=== PATIENT | female | born 1955 | race Caucasian/White ===

== ENCOUNTER 2021-01-01 05:34 | Observation (INO) ==
[2021-01-01] MEDS ORDERED: Buffered Lidocaine 1% SYRIN 1 ml INTRADERM ONE (06:00)
[2021-01-01] MEDS ORDERED: Lactated Ringers 1000 ml BAG 1,000 ML IV SCH (06:00)
[2021-01-01] MEDS ORDERED: Dexamethasone IV 4 MG/ML VIAL 1 ml VIAL IV SLOW PU ONE (06:00)
[2021-01-01] MEDS ORDERED: Famotidine IV 10 MG/ML 2 ml VIAL (20 mg) IV ONE (06:00)
[2021-01-01] MEDS ORDERED: Dexamethasone IV 4 MG/ML VIAL 1 ml VIAL ONE ×2 (06:15→07:05)
[2021-01-01] MEDS ORDERED: Tranexamic Acid 1 GM/100ML BAG 2,000 MG/200 ML BAG IV ONE (06:15)
[2021-01-01] MEDS ORDERED: ceFAZolin 2 GM in NS PREMIX 2 GM/100 ML BAG IVPB ONE (06:16)
[2021-01-01] MEDS ORDERED: Famotidine IV 10 MG/ML 2 ml VIAL (20 mg) ONE (06:16)
[2021-01-01] MEDS ORDERED: fentaNYL 100 mcg/2 ml 50 MCG/ML VIAL ONE ×3 (07:05→12:16)
[2021-01-01] MEDS ORDERED: Lidocaine 2% PF 5 ML VIAL ONE (07:05)
[2021-01-01] MEDS ORDERED: Midazolam 2 mg/2 ml VIAL 1 mg/ml 2 ml VIAL (2 mg) ONE (07:05)
[2021-01-01] MEDS ORDERED: Ondansetron 4 mg VIAL 2 MG/ML 2 ml VIAL ONE ×2 (07:05→11:51)
[2021-01-01] MEDS ORDERED: Propofol 10 MG/ML 20 ML BTL ONE (07:05)
[2021-01-01] MEDS ORDERED: Bupivacaine 0.25% SDV PF 10 ML VIAL INJ ONE (07:29)
[2021-01-01] MEDS ORDERED: ceFAZolin VIAL VIAL ONE (07:29)
[2021-01-01] MEDS ORDERED: Propofol 0 MG/0 ML BTL ONE (07:32)
[2021-01-01 07:39] LABS: ABS Lymphocytes 1.5 10^3/ul (1.0-4.8); ABS Monocytes 0.5 10^3/ul (0-0.8); ABS Neutrophils 6.9 10^3/ul (1.5-7.7); Eosinophil % 0.4 %; Hematocrit 41 % (35-47); Hemoglobin 13.8 g/dL (12.0-16.0); Mean Corpuscular HGB Conc 34 g/dL (31-36); Mean Corpuscular Hemoglobin 30 pg (27-31); Mean Corpuscular Volume 90 fL (80-97); Mean Platelet Volume 8.2 fL (7.4-10.4); Platelet Count 239 10^3/uL (150-450); Red Blood Count 4.55 10^6 /uL (3.70-4.87); Red Cell Distribution Width 14 % (10-15)
[2021-01-01 07:55] LABS: INR 1.09 (0.86-1.15)
[2021-01-01 07:58] LABS: Albumin 4.2 g/dL (3.2-5.2); Albumin/Globulin Ratio 1.6 (1-3); Calcium 9.6 mg/dL (8.6-10.3); Globulin 2.7 g/dL (2-4); Total Bilirubin 0.7 mg/dL (0.2-1.0); Total Protein 6.9 g/dL (6.4-8.9)
[2021-01-01] MEDS ORDERED: ROPIVACAINE 5 MG/ML 30 ML BTL (0.5%) ONE (08:22)
[2021-01-01] MEDS ORDERED: Naloxone 0.4 mg VIAL 0.4 mg/ml 1 ml VIAL IV PRN (08:39)
[2021-01-01] MEDS ORDERED: Morphine 4 MG/ML VIAL (1 ml) IV PRN (08:39)
[2021-01-01] MEDS ORDERED: Prochlorperazine 5 mg/ml 2 ml VIAL (10 mg) IV PRN (08:39)
[2021-01-01] MEDS ORDERED: BUPIVACAINE **LIPOSOME/PF 13.3 MG/ML (266MG/ 20ML) VIAL (RESTRICTED) INFIL ONE (09:00)
[2021-01-01] MEDS ORDERED: HYDROmorphone 1 MG/1 ML SYRINGE ONE (09:00)
[2021-01-01] MEDS ORDERED: Acetaminophen IV 1 GM/100ML 100 ML IV ONE (09:00)
[2021-01-01] MEDS ORDERED: Lactulose 30 ml UDC PO PRN (11:20)
[2021-01-01] MEDS ORDERED: Magnesium Hydroxide LIQ 30 ML UDC PO PRN (11:20)
[2021-01-01] MEDS ORDERED: diPHENhydraMINE 25 mg TAB PO PRN (11:20)
[2021-01-01] MEDS ORDERED: diPHENhydraMINE IV 50 MG/ML 1 ml VIAL (BENADRYL) IV PRN (11:20)
[2021-01-01] MEDS ORDERED: Ondansetron ODT 4 mg TAB 4 MG TAB PO PRN (11:20)
[2021-01-01] MEDS ORDERED: Morphine 2 MG/ML SYRINGE IV PRN (11:27)
[2021-01-01] MEDS: Ondansetron 4 mg VIAL 2 MG/ML 2 ml VIAL IV PRN ×2 (11:52→19:01)
[2021-01-01] MEDS: fentaNYL 100 mcg/2 ml 50 MCG/ML VIAL IV PRN ×2 (12:19→12:24)
[2021-01-01] MEDS: Lactated Ringers 1000 ml BAG 1,000 ML IV SCH ×2 (12:47→23:30)
[2021-01-01] MEDS: ceFAZolin 1 GM ADVAN 1 GM in NS 0.9% 50 ML 50 ML IVPB SCH (15:57)
[2021-01-01] MEDS: Magnesium Hydroxide LIQ 30 ML UDC PO SCH (22:14)
[2021-01-02] MEDS: ceFAZolin 1 GM ADVAN 1 GM in NS 0.9% 50 ML 50 ML IVPB SCH ×2 (00:38→07:32)
[2021-01-02 06:23] LABS: Hematocrit 35 % (35-47); Hemoglobin 11.6 g/dL (12.0-16.0); Mean Platelet Volume 8.4 fL (7.4-10.4); Platelet Count 227 10^3/uL (150-450)
[2021-01-02 06:44] LABS: Calcium 9.4 mg/dL (8.6-10.3); Potassium 4.2 mmol/L (3.5-5.0); eGFR CKD-EPI 97.3 (>60)
[2021-01-02] MEDS: Magnesium Hydroxide LIQ 30 ML UDC PO SCH (08:18)
[2021-01-02] MEDS ORDERED: Vitamin THERAPEUTIC TAB PO SCH (09:00)
[2021-01-02] MEDS ORDERED: Pneumococcal Vac 23-Polyvalent IM ONE (09:00)
[2021-01-02 11:12] VITALS: BP 135/74
[2021-01-04] MEDS ORDERED: Scopolamine PATCH Remove NOTE PATCH OFF SCH (15:00)
== END 2021-01-02 14:35 | disposition home or self-care (01) ==
LOC: OR 05:34 → SSU 05:34
PROVIDERS: ADMIT Orthopaedic Surgery Sports Medicine; ATTEND Orthopaedic Surgery Sports Medicine